=== PATIENT | male | born 1935 | race Caucasian/White ===

== ENCOUNTER 2016-12-12 06:52 | Day surgery (SDC) | payer MEDICARE, OTHER ==
[~2016-12-12 06:52] MED LIST: PHENYLEPHRINE 2.5% OPHTH 2 ML DROPS ONE
[2016-12-12] MEDS ORDERED: KETOROLAC 0.45% OPHTH DROPS OPTH ONE (07:20)
[2016-12-12] MEDS ORDERED: PROPARACAINE 0.5% OPHTH DROPS 15 ML OPTH ONE ×2 (07:20→08:07)
[2016-12-12] MEDS ORDERED: PHENYLEPHRINE 2.5% OPHTH 2 ML DROPS OPTH ONE (07:20)
[2016-12-12] MEDS ORDERED: CYCLOPENTOLATE 1% OPHTH DROPS 2 ML OPTH ONE (07:20)
[2016-12-12] MEDS ORDERED: LACTATED RINGERS 500 ML IV ONE (07:33)
[2016-12-12] MEDS ORDERED: MIDAZOLAM 2 MG/2 ML VIAL IVP ONE (08:00)
[2016-12-12] MEDS ORDERED: EPINEPHrine 1 MG/ML AMP IVP ONE (08:07)
[2016-12-12] MEDS ORDERED: CHONDR SULF/HYALURONATE SYRINGE IO ONE (08:07)
[2016-12-12] MEDS ORDERED: BSS/LIDOCAINE/EPINEPHRINE 1 ML SYRINGE IO ONE ×2 (08:07)
[2016-12-12] MEDS ORDERED: BRIMONIDINE 0.2% OPHTH DROPS 5 ML OPTH ONE (08:07)
[2016-12-12] MEDS ORDERED: TRIAMCIN/MOXIFLOX/VANCO 1 ML VIAL IO ONE ×2 (08:07)
== END 2016-12-12 06:53 | disposition home or self-care (01) ==
PROC: 08RJ3JZ Replacement of Right Lens with Synthetic Substitute, Percutaneous Approach (ICD-10-PCS; principal; 2016-12-12 08:05)
DX: E11.36 Type 2 diabetes mellitus with diabetic cataract (principal); H25.11 Age-related nuclear cataract, right eye; I10 Essential (primary) hypertension; J45.909 Unspecified asthma, uncomplicated
CPT/HCPCS: 66984; A9270; V2632

== ENCOUNTER 2017-01-13 12:58 | Outpatient (CLI) | payer MEDICARE, OTHER ==
[2017-01-13] MEDS ORDERED: ALBUTEROL NEB 2.5 MG/3 ML INH ONE (13:16)
== END 2017-01-13 12:59 | disposition home or self-care (01) ==
DX: J45.909 Unspecified asthma, uncomplicated (principal); R06.2 Wheezing
CPT/HCPCS: 94060; J7613

== ENCOUNTER 2017-01-15 | Outpatient (CLI) | payer MEDICARE, OTHER | END 2017-01-15 18:57 | disposition EMS.NT | DX: Z03.89 Encounter for observation for other suspected diseases and conditions ruled out (principal) ==

== ENCOUNTER 2017-04-03 13:14 | Outpatient (CLI) | payer MEDICARE, OTHER ==
--- NOTE | 2017-04-03 17:27 | XRAY Report ---
THREE VIEW LUMBAR SPINE: 04/03/2017 CLINICAL INDICATION: Point tenderness right lumbar spine, history of fusion. COMPARISON: MRI of 06/03/2015. FINDINGS: AP, lateral, and coned down views of the lumbar spine demonstrate posterior abdulkadir and pedicl e screw fusion spanning L4 through S1, with discectomy changes. L1 compression fracture appears stabl e. Extensive degenerative changes in the L2 and L3 vertebral bodies are present, at the site of previ ous osteomyelitis. No acute fracture is appreciated. Vascular calcifications are noted, and there is increase in dextroscoliosis from previous examinations. IMPRESSION: 1. STABLE L1 COMPRESSION FRACTURE. 2. EXTENSIVE DEGENERATIVE CHANGES AT L2-3, AT THE SITE OF PREVIOUS OSTEOMYELITIS. 3. STABLE APPEARANCE OF POSTERIOR ABDULKADIR AND PEDICLE SCREW FUSION SPANNING L4 THROUGH S1. JOB #: [id number] EXT JOB #:[id number]
== END 2017-04-03 13:15 | disposition home or self-care (01) ==
LOC: DI.S 13:14
PROVIDERS: ATTEND Physician Assistant
DX: M51.36 Other intervertebral disc degeneration, lumbar region (principal); Z96.698 Presence of other orthopedic joint implants
CPT/HCPCS: 72100

== ENCOUNTER 2017-06-20 15:58 | Emergency (ER) | payer MEDICARE, OTHER ==
--- NOTE | 2017-06-20 17:13 | ED Physician Documentation ---
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 The patient had a fall on Friday where he fell forward landing on concrete injuring the right mid tibia area. The patient was able to ambulate so he thought he was fine however from that point to the present is become slightly more swollen over time and now the front of his leg is red, tender in the entire lower extremity below the knee is swollen and pruritic because of the swelling. There is no pain with ambulation and however he has not been keeping it elevated or has been trying to stay off of it. He went to see his physician was concerned about possible venous thromboembolism and sent him in for evaluation. The patient is not on any anticoagulants. He has no chest pain or shortness of breath. There is no nausea vomiting fever chills, constipation, diarrhea or lower urinary symptoms. Review of systems: For pertinent positive and negatives in the review of systems please see the history of present illness, otherwise all other systems have been reviewed and are negative. Dragon disclaimer: Parts of this medical record were created using voice recognition technology. Because of the inherent limitations of this system, occasional same sounding word substitutions do occur and persist despite proofreading. Please read the document for context. Review of Systems Ten Systems: 10 systems reviewed and negative Constitutional: denies: Fever, Chills Eyes: denies: Loss of vision, Photophobia Ears: denies: Loss of hearing, Ear pain GI: denies: Abdominal Pain, Vomiting : denies: Dysuria, Frequency, Hesitancy Musculoskeletal: denies: Neck pain, Back pain, Extremity pain Neurologic: denies: Numbness Psychiatric: denies: Depressed, Suicidal, Homicidal Endocrine: denies: Polyphagia PD PAST MEDICAL HISTORY - Past Medical History Cardiovascular: Hypertension Respiratory: Asthma, Other Endocrine/Autoimmune: Type 2 diabetes, Other GI: None : None HEENT: Glaucoma, Other Psych: Anxiety Musculoskeletal: Osteoarthritis, Chronic back pain Derm: Other - Past Surgical History General: Colonoscopy Ortho: Spine surgery Derm: Skin cancer surgery - Present Medications Home Medications: Ambulatory Orders Medication Instructions Recorded Confirmed Albuterol Sulf [Ventolin Hfa 2 puffs INH Q4HR PRN 12/11/16 06/20/17 Inhaler] Gabapentin [Neurontin] 900 mg PO BID 12/11/16 06/20/17 Lisinopril 20 mg PO DAILY 12/11/16 06/20/17 amLODIPine [Norvasc] 10 mg PO DAILY 12/11/16 06/20/17 buPROPion [Wellbutrin Xl] 300 mg PO DAILY 12/11/16 06/20/17 oxyCODONE [Roxicodone] 10 mg PO QID 12/11/16 06/20/17 Latanoprost 0.005% Ophth Drops 1 drops OPTH BID 12/12/16 06/20/17 [Xalatan Ophth Drops] Melatonin 1 mg PO QPM 12/12/16 06/20/17 Budesonide/Formoterol Fumarate 1 puffs PO DAILY 06/20/17 06/20/17 [Symbicort 80-4.5 Mcg Inhaler] metFORMIN [Glucophage] 500 mg PO DAILY 06/20/17 06/20/17 - Allergies Allergies/Adverse Reactions: Allergies Allergy/AdvReac Type Severity Reaction Status Date / Time No Known Drug Allergies Allergy Verified 12/11/16 13:21 - Social History Does the pt smoke?: No Smoking Status: Never smoker - Immunizations Immunizations are current?: Yes PD ED PE NORMAL - General General: Alert and oriented X 3, No acute distress, Well developed/nourished - HEENT HEENT: Atraumatic - Neck Neck: No bony TTP - Cardiac Cardiac: RRR, No murmur - Respiratory Respiratory: No respiratory distress, Clear bilaterally - Abdomen Abdomen: Normal bowel sounds, Soft, Non tender, Non distended - Derm Derm: Normal color, Warm and dry - Extremities Extremities: Other (The right leg is diffusely edematous and swollen from the knee downward. There is area of bruising just below the right knee and also over the mid tibia area anteriorly. There is mild surrounding erythema but no warmth. The entire right lower extremity is swollen however it appears mostly edemas from the front of the leg where the trauma occurred. There is good capillary refill. His foot is warm and movement does not elicit any pain in the leg. There are good easily palpable pulses and there is no evidence of any venous circulatory problems. Range of motion of the knee is normal. Range of motion of the ankle is normal as well. There is no hindfoot midfoot, or forefoot tenderness on exam.) Results - Vitals Vitals: Vital Signs - 24 hr 06/20/17 06/20/17 16:06 18:23 Temperature 36.8 C Heart Rate 68 68 Respiratory 16 17 Rate Blood Pressure 122/69 133/54 H O2 Saturation 95 97 Oxygen O2 Source Room air - Labs Labs: Laboratory Tests 06/20/17 06/20/17 06/20/17 16:43 17:17 17:17 WBC 7.9 RBC 4.35 L Hgb 13.7 L Hct 41.4 L MCV 95.1 H MCH 31.4 H MCHC 33.0 RDW 12.2 Plt Count 195 MPV 8.2 Neut # 5.2 Lymph # 1.8 Blount # 0.7 Eos # 0.1 Baso # 0.0 Absolute Nucleated RBC 0.00 Nucleated RBCs 0.0 PT 10.8 INR 1.0 Sodium Potassium Chloride Carbon Dioxide Anion Gap BUN Creatinine Estimated GFR (MDRD) Glucose POC Whole Bld Glucose 105 H Calcium 06/20/17 17:17 WBC RBC Hgb Hct MCV MCH MCHC RDW Plt Count MPV Neut # Lymph # Blount # Eos # Baso # Absolute Nucleated RBC Nucleated RBCs PT INR Sodium 135 Potassium 4.6 Chloride 98 L Carbon Dioxide 29 Anion Gap 8.0 BUN 26 H Creatinine 0.9 Estimated GFR (MDRD) 81 L Glucose 105 H POC Whole Bld Glucose Calcium 9.2 PD MEDICAL DECISION MAKING - ED course Complexity details: reviewed old records, reviewed results, re-evaluated patient ED course: Patient is a 82-year-old male who presents with right leg pain and swelling after an injury a week ago. On examination it looks like the swelling is probably due to contusion and hematoma however I do agree with his physician's assessment that he does require ultrasound to rule out a DVT. Ultrasound was done and is negative for deep venous thrombosis. Plain films of the patient's fibula and tibia were done and are unremarkable as well. At this point I am recommending warmth, elevation, limited exercise and follow-up with his physician. Disposition: To home Clinical impression: 1. Right lower extremity contusion and hematoma Departure - Departure Disposition: Home, Self Care Clinical Impression: Hematoma of lower extremity, Contusion Condition: Good Instructions: Contusion Bone About, ED Hematoma Follow-Up: Meghana Richards PA [Primary Care Provider] -
[2017-06-20 17:23] LABS: BASOPHILS % (AUTO) 0.5 %; EOSINOPHILS # (AUTO) 0.1 10^3/uL (0.0-0.7); EOSINOPHILS % (AUTO) 1.4 %; HCT - HEMATOCRIT 41.4 % (42.0-52.0); HGB - HEMOGLOBIN 13.7 g/dL (14.0-18.0); LYMPHOCYTES # (AUTO) 1.8 10^3/uL (1.5-3.5); LYMPHOCYTES % (AUTO) 23.4 %; MEAN CORPUSCULAR HEMOGLOBIN 31.4 pg (27.0-31.0); MEAN CORPUSCULAR VOLUME 95.1 fL (80.0-94.0); MEAN PLATELET VOLUME 8.2 fL (7.4-11.4); MONOCYTES # (AUTO) 0.7 10^3/uL (0.0-1.0); MONOCYTES % (AUTO) 9.1 %; NEUTROPHILS # (AUTO) 5.2 10^3/uL (1.5-6.6); NEUTROPHILS % (AUTO) 65.6 %; RED BLOOD COUNT 4.35 10^6/uL (4.70-6.10); RED CELL DISTRIBUTION WIDTH 12.2 % (12.0-15.0); UNCORRECTED WHITE BLOOD COUNT 7.9 x10^3/uL; WHITE BLOOD COUNT 7.9 x10^3/uL (4.8-10.8)
[2017-06-20 17:31] LABS: CALCIUM 9.2 mg/dL (8.5-10.3); CREATININE 0.9 mg/dL (0.6-1.2); POTASSIUM 4.6 mmol/L (3.5-5.0); PT - PROTHROMBIN TIME 10.8 secs (9.9-12.6)
--- NOTE | 2017-06-20 17:50 | XRAY Preliminary Report ---
Exam: XR Tib/Fib RT IMPRESSION: Soft tissue swelling. No acute fracture identified. [facility] SITE ID: [id number]
--- NOTE | 2017-06-20 17:53 | XRAY Report ---
EXAM: RIGHT TIBIA/FIBULA RADIOGRAPHY EXAM DATE: 06/20/2017 05:33 PM. CLINICAL HISTORY: Mid tibial injury subacute. COMPARISON: None. TECHNIQUE: 2 views. FINDINGS: Bones: No acute fracture or focal osseous destruction identified. Joints: joints appear maintained with no dislocation. Soft Tissues: Atherosclerotic vascular calcification. Soft tissue swelling. IMPRESSION: Soft tissue swelling. No acute fracture identified. [facility] Referring Provider Line: [phone] SITE ID: [id number]
[2017-06-20 18:24] VITALS: BP 133/54
--- NOTE | 2017-06-20 18:36 | Ultrasound Preliminary Report ---
Exam: US Duplex Venous Limited IMPRESSION: No evidence for deep venous thrombosis. [facility] SITE ID: [id number]
--- NOTE | 2017-06-20 18:38 | Ultrasound Report ---
EXAM: RIGHT LOWER EXTREMITY VENOUS ULTRASOUND EXAM DATE: 06/20/2017 06:17 PM. CLINICAL HISTORY: Right leg swelling. COMPARISON: None. TECHNIQUE: Real-time sonographic vascular imaging was performed by the proposal lead writer through the lower extremity utilizing both color-flow and Doppler spectral analysis. Multiple manufacturers representative static anthony ges were saved for review. FINDINGS: Common Femoral Vein (CFV): Normal. CFV-GSV Junction: Normal. Profunda Femoral Vein (PFV): Normal. Femoral Vein (FV) Prox: Normal. Femoral Vein (FV) Mid: Normal. Femoral Vein (FV) Dist: Normal. Popliteal Vein: Normal. Posterior Tibial Veins: Normal. Peroneal Veins: Normal. Contralateral Side CFV: Normal. Other: None. IMPRESSION: No evidence for deep venous thrombosis. [facility] Referring Provider Line: [phone] SITE ID: [id number]
== END 2017-06-20 18:51 | disposition home or self-care (01) ==
LOC: ED 15:58
DX: S80.11XA Contusion of right lower leg, initial encounter (principal); W18.30XA Fall on same level, unspecified, initial encounter; I10 Essential (primary) hypertension; J45.909 Unspecified asthma, uncomplicated; E11.9 Type 2 diabetes mellitus without complications; Z79.84 Long term (current) use of oral hypoglycemic drugs
CPT/HCPCS: 36415; 80048; 85025; 85610; 93971; 99283

== ENCOUNTER 2017-06-26 11:14 | Outpatient (CLI) | payer MEDICARE, OTHER | END 2017-06-26 11:15 | disposition home or self-care (01) | LOC: DI 11:14 | PROVIDERS: ATTEND Physician Assistant | DX: I10 Essential (primary) hypertension (principal); R60.9 Edema, unspecified; I51.7 Cardiomegaly | CPT/HCPCS: 93306 ==

== ENCOUNTER 2017-08-25 13:02 | Outpatient (CLI) | payer MEDICARE, OTHER | END 2017-08-25 13:03 | disposition home or self-care (01) | LOC: SC 13:02 | PROVIDERS: ATTEND Internal Medicine Pulmonary Disease | DX: G47.10 Hypersomnia, unspecified (principal); R06.83 Snoring; I10 Essential (primary) hypertension | CPT/HCPCS: 99203; G0463; 99212 ==

== ENCOUNTER 2018-02-25 09:46 | Outpatient (CLI) | payer MEDICARE, OTHER ==
--- NOTE | 2018-02-25 12:52 | XRAY Report ---
TWO VIEW CHEST: 02/25/2018 CLINICAL INDICATION: Cough, shortness of breath. COMPARISON: 10/23/2016. FINDINGS: Frontal and lateral views of the chest demonstrate a normal cardiac silhouette. Hiatal hernia is stable. No new consolidation, effusion, or pneumothorax is present. IMPRESSION: STABLE HIATAL HERNIA. NO EVIDENCE OF ACUTE CARDIOPULMONARY DISEASE. TD: 02/25/2018 12:51
== END 2018-02-25 09:47 | disposition home or self-care (01) ==
LOC: DI 09:46
PROVIDERS: ATTEND Nurse Practitioner Family
DX: R05 Cough (principal); R06.2 Wheezing; K44.9 Diaphragmatic hernia without obstruction or gangrene
CPT/HCPCS: 71046

== ENCOUNTER 2018-06-12 08:57 | Outpatient (CLI) | payer MEDICARE, OTHER ==
--- NOTE | 2018-06-12 10:13 | XRAY Report ---
Procedure Date: 06/12/2018 Accession Number: [id number] / [id number] Procedure: XR - Thoracic Spine 2 View CPT Code: FULL RESULT: EXAM: Thoracic Spine 2 View, Lumbar Spine 2 View DATE: 06/12/2018 9:26 AM CLINICAL HISTORY: HISTORY OF FRACTURE, FAILLING INJURY COMPARISON: None. TECHNIQUE: 2 views of the thoracic spine and 2 views of the lumbar spine were obtained. FINDINGS: Visualization of vertebral bodies on the lateral radiograph is limited by positioning, technique and qualitative osteopenia. Alignment: Normal. No spondylolisthesis or scoliosis. Bones: No fractures or bone lesions. Disks: Normal. Disk heights are maintained. Soft Tissues: A known hiatal hernia is partially visualized. The visualized lungs and cardiomediastinal silhouette are otherwise unremarkable. LUMBAR SPINE: Lumbar spinal fusion hardware spanning L4-S1 is again seen in similar configuration. Dextro listhesis of L3 on L4 with extensive osseous degeneration also appears similar to before. The L1 anterior compression fracture is stable. Vascular calcifications are again noted to be extensive. IMPRESSION: Limited visualization of the thoracic spine which is qualitatively osteopenic. Redemonstration of lower lumbar fusion hardware and extensive degenerative changes of the lumbar spine with reported history of prior osteomyelitis, all similar in appearance. Stable L1 compression fracture. [facility]
== END 2018-06-12 08:58 | disposition home or self-care (01) ==
LOC: DI 08:57
PROVIDERS: ATTEND Internal Medicine
DX: M47.896 Other spondylosis, lumbar region (principal); M85.88 Other specified disorders of bone density and structure, other site; M43.16 Spondylolisthesis, lumbar region; Z98.1 Arthrodesis status; S32.019D Unspecified fracture of first lumbar vertebra, subsequent encounter for fracture with routine healing
CPT/HCPCS: 72070; 72100

== ENCOUNTER 2018-07-03 09:04 | Outpatient (CLI) | payer MEDICARE, OTHER ==
[2018-07-03] MEDS ORDERED: GADOBUTROL 10 MMOL/10 ML VIAL ONE (09:26)
[2018-07-03] MEDS ORDERED: GADOBUTROL 10 MMOL/10 ML VIAL IVP ONE (09:59)
--- NOTE | 2018-07-03 17:38 | MRI Report ---
Procedure Date: 07/03/2018 Accession Number: [id number] / [id number] Procedure: MRI - Lumbar Spine W/WO CPT Code: FULL RESULT: MRI LUMBAR SPINE WITHOUT AND WITH CONTRAST INDICATION: 83-year-old male with a history of spinal stenosis. Has recurrent symptoms after recent fall. Please assess. TECHNIQUE: 1. Sagittal STIR, T1 and T2. 2. Axial T1 and T2. 3. 10 cc IV Gadavist. T1 axial and fat saturated T1 sagittal. COMPARISON: 06/03/2015. FINDINGS: There appear to be 5 [id number], lumbar-type vertebrae. Again demonstrated is a minor, dextroconvex scoliosis with apex at the L1-L2 disk level and compensatory, mild, levoconvex scoliosis with apex at the L4-L5 disk level. In the sagittal plane again demonstrated is a mild acute kyphosis with apex at T12-L1. In addition, again demonstrated is minor retrolisthesis of L2 on L3 and L3 on L4 and minor anterolisthesis of L4 on L5, stable. Again demonstrated is quite marked anterior wedging of the L1 vertebral body, stable. There has been interval development of prominent concavity of the superior endplate of L3 with associated height loss, most pronounced centrally where the height loss appears to represent about 50%. Mild to moderate loss of height is seen anteriorly and posteriorly. No significant retropulsion is demonstrated. Normal fatty marrow signal is seen throughout the L3 vertebral body, confirming that the fracture deformity is long-standing and does not relate to recent fracture. The vertebral body heights are otherwise preserved. Previously demonstrated findings of diskitis/osteomyelitis at L2-L3 have completely resolved. Again demonstrated are changes of previous diskectomy at L4-L5. An interbody fusion device is again seen within the L4-L5 disk space. No obvious trabecular bone is seen traversing the L4-L5 disk space to confirm interbody fusion. This suggests nonunion. Changes of previous diskectomy and interbody fusion surgery are also again seen at L5-S1. Once again, no trabecular bone is identified traversing the disk space suggesting possible nonunion. Also again demonstrated are changes of previous instrumented, posterolateral fusion from L4 to S1 with pedicle screws and interconnecting rods in place. There is some magnetic susceptibility artifact from the pedicle screws; however, this is not resulting in significant image degradation. Degenerative changes are demonstrated in the disks at all levels. There is a multilevel degenerative disk space narrowing. Moderate disk space narrowing is now seen at L2-L3. There is relatively severe disk space narrowing at L3-L4, laterally on the left, unchanged. The L1-L2 and L5-S1 disk space heights appear relatively preserved. The marrow signal intensity is unremarkable. The conus terminates in an appropriate fashion at the upper L1 level. There is no abnormal thickening or lipomatous change of the filum. Axial images: T12-L1: No disk herniation or spinal stenosis. No foraminal stenosis. L1-L2: Again demonstrated is a broad-based, right intraforaminal/extraforaminal protrusion or extrusion with associated annular fissure, unchanged. No significant spinal stenosis. Mild right and mild to moderate left foraminal stenoses, unchanged. L2-L3: Retrolisthesis. A small focal extrusion is now demonstrated, paracentrally on the left. It demonstrates minor, caudal migration in the ventral epidural space along the dorsal margin of the upper L3 vertebral body on the left. The extrusion projects posteriorly into the spinal canal for up to about 3.5 mm. There is a broad-based, left intraforaminal/extraforaminal extrusion with associated, minor intraforaminal osteophyte unchanged. In addition, a broad-based right intraforaminal/extraforaminal extrusion with associated, intraforaminal osteophyte is again demonstrated,essentially unchanged. There is early degenerative facet arthrosis. No significant bony hypertrophy. Mild to moderate redundancy of the ligamenta flava. Again demonstrated is prominence of the intradural fat pad. There is circumferential thecal sac compression with severe generalized (central and subarticular zone) spinal stenosis. The left subarticular zone is most severely affected and appears to be completely effaced. The mid sagittal canal diameter is reduced to about 5.6 mm, similar to previous study. The degree of foraminal narrowing is slightly increased. There appears be at least moderate foraminal stenosis bilaterally. L3: The previously demonstrated, left-sided epidural abscess is no longer seen and appears to have completely resolved. However, there is significant spinal stenosis at this level, primarily due to abundant epidural fat that surrounds and compresses the dural sac. Little if any CSF is seen in the dural sac at this level. L3-L4: Retrolisthesis. Circumferential disk bulge with associated posterior osteophyte. Broad-based intraforaminal/extraforaminal extrusions with associated osteophyte bilaterally, similar to previous examination. Degenerative facet arthrosis with associated bony hypertrophy, stable. There is mild to moderate redundancy of the ligamenta flava. Prominent intralaminar fat pad. Severe generalized spinal stenosis. The degree of spinal stenosis appears minimally worse when compared to the prior study. Severe right and high-grade left foraminal stenoses. On the left, prominent bony spur rising from the superior articular process of L4 projects into the foramen and contacts the exiting left L3 nerve root. The L3 nerve root appears be flattened in the lateral aspect of the foramen. L4-L5: Again demonstrated are changes related to previous bilateral laminectomy or laminotomy. No focal disk herniation is demonstrated. No spinal stenosis. There is moderate to severe right foraminal stenosis unchanged. Perineural fat surrounding the exiting right L5 nerve root continues to be effaced. Moderate left foraminal stenosis, stable. L5-S1: No disk herniation. No central zone spinal stenosis or significant subarticular zone narrowing. There is mild left and mild to moderate right foraminal narrowing, stable. Fairly advanced fatty atrophy is again noted in the posterior paraspinal musculature. There is edema in the midline, subcutaneous fat that is nonspecific. It extends from about upper L3 to upper S2. The lower lumbar spine is obscured due to beam hardening artifact. However, no abnormal enhancement is identified in the upper lumbar spine on postcontrast fat saturated T1 sagittal sequence. No findings concerning for active infection at this time. IMPRESSION: 1. The findings of diskitis/osteomyelitis at L2-L3 seen on previous study 06/03/2015 are no longer demonstrated and appear to have resolved. In addition, the epidural abscess in the left epidural space at L3 appears to have completely resolved. 2. Stable compression deformity of L1. There has been interval development of concavity of the superior endplate of L3 with associated loss of height, most pronounced centrally. No marrow edema is seen in the L3 vertebral body confirming that this represents a long-standing abnormality rather than relating to acute or subacute fracture. 3. Postsurgical changes are again demonstrated at L4-L5 and L5-S1, unchanged. Again noted are findings of previous diskectomy and interbody fusion surgery at L4-L5 and L5-S1. No trabecular bone has developed across either disk space to suggest solid interbody fusion. This suggests probable nonunion, a potential cause for pain. 4. Fairly advanced degenerative disk and facet changes are seen in the lumbar spine as described, showing some interval progression when compared to previous study 06/03/2015. There are associated, central, subarticular and foraminal zone stenoses. The most significant stenoses are as follows: A. Severe generalized spinal stenosis at L2-L3, similar to previous examination. There is a new, left-sided extrusion at this level and degree of stenosis in the left subarticular zone has progressed. B. There is severe generalized spinal stenosis at L3-L4 that has shown mild interval progression since the previous examination. Again noted are severe foraminal stenoses at L3-L4 bilaterally, worse on the left than the right. There is almost certain compromise of exiting left L3 nerve root. There could be compromise of exiting right L3 nerve root as well. Addendum: Noted is a new roughly 8 mm AP by 6 mm transverse, ovoid, T1 hypointense and T2 hyperintense lesion in the left pedicle of L3 (see image 7 of series #301 and image 21 of series 601). The etiology is uncertain. This may represent some type of degenerative bone cyst. However, concerning is circumferential enhancement on the postcontrast sequence (see image 6 of series 801). This makes it difficult to exclude infection. A thin slice, high-resolution CT through this area (i.e., from upper L2 to lower L4) may be helpful in further evaluating this new left L3 pedicle lesion.
== END 2018-07-03 09:05 | disposition home or self-care (01) ==
LOC: DI 09:04
PROVIDERS: ATTEND Internal Medicine
DX: M51.36 Other intervertebral disc degeneration, lumbar region (principal); M47.896 Other spondylosis, lumbar region; M48.061 Spinal stenosis, lumbar region without neurogenic claudication; M51.26 Other intervertebral disc displacement, lumbar region; M43.16 Spondylolisthesis, lumbar region; M43.8X6 Other specified deforming dorsopathies, lumbar region; M89.9 Disorder of bone, unspecified
CPT/HCPCS: 72158; A9585

== ENCOUNTER 2021-03-22 13:03 | Outpatient (CLI) | payer MEDICARE, OTHER ==
[2021-03-22 13:33] LABS: CALCIUM 9.2 mg/dL (8.5-10.3); CREATININE 0.7 mg/dL (0.6-1.2)
[2021-03-22] MEDS ORDERED: GADOBUTROL 10 MMOL/10 ML VIAL ONE (13:44)
[2021-03-22] MEDS ORDERED: GADOBUTROL 10 MMOL/10 ML VIAL IVP ONE (14:58)
--- NOTE | 2021-03-22 15:38 | MRI Report ---
PROCEDURE: Brain with and without IV contrast INDICATIONS: Canal CONTRAST: IV CONTRAST: Gadavist ml: 100 TECHNIQUE: Noncontrast axial T1 spin echo, axial T2 fast spin echo, sagittal and axial FLAIR, coronal T2 fast sp in echo, axial gradient echo, axial diffusion and ADC through the brain. After the administration of contrast, axial and coronal T1 spin echo with fat saturation through the brain. COMPARISON: None. FINDINGS: Image quality: Excellent. CSF spaces: Basal cisterns are patent. No extra-axial fluid collections. Ventricles are normal in size and shape. Brain: No midline shift. No intracranial bleeds or masses. No abnormal intracranial enhancement. There is cerebral volume loss for age. There is periventricular white matter chronic small vessel is chemic change. The brainstem appears normal. Diffusion-weighted images demonstrate no acute ischemi c insults. No chronic ischemic insults. Normal intravascular flow voids are present. Skull and face: Calvarial marrow is normal in signal. Orbits appear normal other than bilateral int raocular lens replacements. Sinuses: Scattered paranasal sinus mucosal thickening with moderate sized mucosal retention cyst in t he right maxillary sinus. Mastoid air cells appear clear. IMPRESSION: No acute intracranial finding or abnormal intracranial enhancement. Reviewed by: Miguel Angel Colon MD on 03/22/2021 3:36 PM PDT Approved by: Miguel Angel Colon MD on 03/22/2021 3:36 PM PDT Station ID: [id number]
== END 2021-03-22 13:04 | disposition home or self-care (01) ==
LOC: LAB 13:03
PROVIDERS: ATTEND Otolaryngology
DX: E11.69 Type 2 diabetes mellitus with other specified complication (principal); R26.89 Other abnormalities of gait and mobility
CPT/HCPCS: 36415; 70553; 80048; A9585

== ENCOUNTER 2021-06-14 06:11 | Outpatient (CLI) | payer MEDICARE, OTHER | END 2021-06-14 06:12 | disposition critical access hospital (66) | LOC: EMS 06:11 | DX: S01.91XA Laceration without foreign body of unspecified part of head, initial encounter (principal); W18.39XA Other fall on same level, initial encounter; W22.09XA Striking against other stationary object, initial encounter; Y93.G1 Activity, food preparation and clean up; Y92.000 Kitchen of unspecified non-institutional (private) residence as the place of occurrence of the external cause | CPT/HCPCS: A0425; A0429 ==

== ENCOUNTER 2021-06-14 06:38 | Emergency (ER) | payer MEDICARE, OTHER ==
[2021-06-14] MEDS ORDERED: BUFFERED LIDOCAINE 10 ML SYRINGE IU ONE (07:48)
--- NOTE | 2021-06-14 08:10 | CT Report ---
PROCEDURE: HEAD WO INDICATIONS: head injury TECHNIQUE: Noncontrast 4.5 mm thick angled axial sections acquired from the foramen magnum to the vertex. For r adiation dose reduction, the following was used: automated exposure control, adjustment of mA and/or kV according to patient size. COMPARISON: None FINDINGS: Image quality: Excellent. CSF spaces: Basal cisterns are patent. No extra-axial fluid collections. The ventricles are symmet francesca in size and shape. Brain: No intracranial bleeds or masses. There is cerebral volume loss for age, with resultant vent ricular and sulcal prominence. There are periventricular and deep white matter chronic small vessel ischemic changes. There is intracranial internal carotid artery and vertebral artery atherosclerosis . Skull and face: Calvarium and visualized facial bones appear intact, without suspicious lesions. The scalp midline hematoma/laceration. Sinuses: Visualized sinuses and mastoids are clear. IMPRESSION: No acute intracranial disease process. Reviewed by: Luda Borja MD, PhD on 06/14/2021 8:09 AM PDT Approved by: Luda Borja MD, PhD on 06/14/2021 8:09 AM PDT Station ID: [id number]
--- NOTE | 2021-06-14 08:44 | ED Physician Documentation ---
PD HPI HEAD INJURY - Stated complaint Stated Complaint: GLF/HEAD LAC - Chief complaint Chief Complaint: Trauma Hd/Nk - History obtained from History obtained from: Patient, Family - Additional information Additional information: Patient comes emergency department chief complaint of head injury after ground- level fall. Patient states he has been unsteady on his feet for some months and that he will randomly fall at times. Patient does not remember specifically tripping over anything but states that he suddenly was stumbling backwards and hit his head on the edge of a cabinet. Patient did not lose consciousness. He denies any rib, spine, hip, or shoulder pain. No extremity pain. He sustained a laceration to his posterior scalp. No other complaints at this time. Review of Systems Ten Systems: 10 systems reviewed and negative Constitutional: reports: Reviewed and negative Eyes: reports: Reviewed and negative Ears: reports: Reviewed and negative Nose: reports: Reviewed and negative Throat: reports: Reviewed and negative Cardiac: reports: Reviewed and negative Respiratory: reports: Reviewed and negative GI: reports: Reviewed and negative : reports: Reviewed and negative Skin: reports: Reviewed and negative Musculoskeletal: reports: Reviewed and negative Neurologic: reports: Head injury. denies: LOC Psychiatric: reports: Reviewed and negative Endocrine: reports: Reviewed and negative Immunocompromised: reports: Reviewed and negative PD PAST MEDICAL HISTORY - Past Medical History Past Medical History: Yes Cardiovascular: Hypertension Respiratory: Asthma, Other Endocrine/Autoimmune: Type 2 diabetes, Other GI: None : None HEENT: Glaucoma, Other Psych: Anxiety Musculoskeletal: Osteoarthritis, Chronic back pain Derm: Other - Past Surgical History General: Colonoscopy Ortho: Spine surgery Derm: Skin cancer surgery - Present Medications Home Medications: Ambulatory Orders Medication Instructions Recorded Confirmed Albuterol Sulf [Ventolin Hfa 2 puffs INH Q4HR PRN 12/11/16 06/14/21 Inhaler] Gabapentin [Neurontin] 900 mg PO BID 12/11/16 06/14/21 Lisinopril 20 mg PO DAILY 12/11/16 06/14/21 amLODIPine [Norvasc] 10 mg PO DAILY 12/11/16 06/14/21 buPROPion [Wellbutrin Xl] 300 mg PO DAILY 12/11/16 06/14/21 oxyCODONE [Roxicodone] 10 mg PO QID 12/11/16 06/14/21 Latanoprost 0.005% Ophth Drops 1 drops OPTH BID 12/12/16 06/14/21 [Xalatan Ophth Drops] Melatonin 1 mg PO QPM 12/12/16 06/14/21 Budesonide/Formoterol Fumarate 1 puffs PO DAILY 06/20/17 06/14/21 [Symbicort 80-4.5 Mcg Inhaler] metFORMIN [Glucophage] 500 mg PO DAILY 06/20/17 06/14/21 - Allergies Allergies/Adverse Reactions: Allergies Allergy/AdvReac Type Severity Reaction Status Date / Time No Known Drug Allergies Allergy Verified 06/14/21 06:43 - Social History Does the pt smoke?: No Smoking Status: Never smoker - Immunizations Immunizations are current?: Yes PD ED PE NORMAL - Vitals Vital signs reviewed: Yes - General General: Alert and oriented X 3, No acute distress, Well developed/nourished - HEENT HEENT: PERRL, EOMI, Moist mucous membranes, Other (4.5 cm vertical laceration to midline scalp posteriorly and superiorly. No active bleeding at this point time, but fresh clot noted in wound.) - Neck Neck: Supple, no meningeal sign, No bony TTP - Cardiac Cardiac: RRR, No murmur, Strong equal pulses - Respiratory Respiratory: No respiratory distress, Clear bilaterally - Abdomen Abdomen: Soft, Non tender, Non distended - Back Back: No spinal TTP, Other (Rib tenderness or step-off. 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, No motor deficit, No sensory deficit, Normal speech - Psych Psych: Normal mood, Normal affect Results - Vitals Vitals: Vital Signs - 24 hr 06/14/21 06/14/21 06/14/21 06:43 06:46 09:22 Temperature 36.8 C 36.8 C 36.4 C L Heart Rate 65 65 66 Respiratory 19 18 16 Rate Blood Pressure 180/60 H 180/60 H 164/76 H O2 Saturation 97 97 97 Oxygen O2 Source Room air - Rads (name of study) ct head Radiology: Final report received, EMP read indepedently, See rad report (neg) Procedures - Laceration (location) scalp Length in cm: 4.5 Wound type: Linear, Into subcut fat, Clean Neurovascular status: Sensory intact, Vascular intact Tendon involvement: No: Tendon Injury Anesthesia: Lidocaine 1% Wound preparation: Hibiclens, Irrigated copiously NS, Wound explored, To the base. No: FB identified Skin layer closure: [place] (11) Other: Patient tolerated well, No complications, Neurovascular intact, Dressing applied, Tetanus UTD PD MEDICAL DECISION MAKING - ED course Complexity details: reviewed results, re-evaluated patient, considered differential, d/w patient, d/w family ED course: Patient was sent for CT scan of the brain which was unremarkable. Scalp laceration was repaired with 11 alber as above. We have discussed wound care at home and the need for reevaluation of the wound and 10 days with plan to remove alber at that time. We have discussed signs of infection which should prompt return. Departure - Departure Disposition: 01 Home, Self Care Clinical Impression: Closed head injury Qualifiers: Encounter type: initial encounter Qualified Code(s): S09.90XA - Unspecified injury of head, initial encounter Scalp laceration Qualifiers: Encounter type: initial encounter Qualified Code(s): S01.01XA - Laceration without foreign body of scalp, initial encounter Condition: Stable Instructions: ED Head Injury Closed, ED Laceration Scalp Stitch Or Stap Comments: The CT scan of your brain looks good. There is no bleeding or other injury internally. Your laceration has been 6 sterilely stapled with 11 alber today. You may allow water and soap to run over the wound but please do not rub, scrub, or immerse the wound until the alber are removed. Your wound should be rechecked in 10 days and should be ready for staple removal at that time. If your doctor has the appropriate device in his or her office, you may follow-up there for your wound recheck and staple removal. Otherwise, you may go to the walk-in clinic or come to the emergency department for this. If your wound develops redness or progressive swelling spreading away from the wound, or if the wound begins to drain what appears to be pus, you should have it rechecked immediately. You should keep the wound covered with a gauze bandage until the wound sets up with a dry scab. You may also apply an antibacterial ointment for the first few days if you wish, such as Neosporin. Once the wound is dry, it ma y be left open to air. Discharge Date/Time: 06/14/21 09:22
[2021-06-14 09:23] VITALS: BP 164/76
== END 2021-06-14 09:22 | disposition home or self-care (01) ==
LOC: EDUNIT# → ED 06:38
DX: S01.01XA Laceration without foreign body of scalp, initial encounter (principal); W01.190A Fall on same level from slipping, tripping and stumbling with subsequent striking against furniture, initial encounter; I10 Essential (primary) hypertension; E11.9 Type 2 diabetes mellitus without complications; Z79.84 Long term (current) use of oral hypoglycemic drugs; R26.81 Unsteadiness on feet
CPT/HCPCS: 12002; 99282; 99284

== ENCOUNTER 2021-08-01 07:40 | Outpatient (CLI) | payer MEDICARE, OTHER ==
[2021-08-01 15:16] LABS: CALCIUM 8.9 mg/dL (8.5-10.3); CREATININE 0.8 mg/dL (0.6-1.2)
== END 2021-08-01 07:41 | disposition home or self-care (01) ==
LOC: LAB.S 07:40
PROVIDERS: ATTEND Nurse Practitioner Family
DX: I50.812 Chronic right heart failure (principal); I50.32 Chronic diastolic (congestive) heart failure; I87.8 Other specified disorders of veins
CPT/HCPCS: 36415; 80048

== ENCOUNTER 2022-05-13 13:21 | Emergency (ER) | payer MEDICARE, OTHER ==
[2022-05-13] MEDS ORDERED: HYDROmorphone 1 MG/ML CARPUJECT IVP STA (14:10)
--- NOTE | 2022-05-13 14:12 | ED Physician Documentation ---
PD HPI BACK PAIN - Stated complaint Stated Complaint: FALL,BACK PAIN - Chief complaint Chief Complaint: Back Pain - History obtained from History obtained from: Patient, Family - Additional information Additional information: 87-year-old gentleman with chronic back pain, around 2004 he had a surgery and then a #1 and about 7 years ago which was related to a spinal infection. He is on chronic oxycodone for same but his notes that his doctor is tapering him off. They are planning on switching physicians. 2 days ago he fell straight on his back and now has increased upper/mid lumbar back pain without weakness, numbness, tingling, saddle anesthesia, incontinence, or fevers. Review of Systems Constitutional: denies: Fever, Chills Cardiac: denies: Chest pain / pressure, Palpitations Respiratory: denies: Dyspnea, Cough GI: denies: Abdominal Pain, Diarrhea PD PAST MEDICAL HISTORY - Past Medical History Cardiovascular: Hypertension Respiratory: Asthma, Other Endocrine/Autoimmune: Type 2 diabetes, Other GI: None : None HEENT: Glaucoma, Other Psych: Anxiety Musculoskeletal: Osteoarthritis, Chronic back pain Derm: Other - Past Surgical History General: Colonoscopy Ortho: Spine surgery Derm: Skin cancer surgery - Present Medications Home Medications: Ambulatory Orders Medication Instructions Recorded Confirmed Albuterol Sulf [Ventolin Hfa 2 puffs INH Q4HR PRN 12/11/16 05/13/22 Inhaler] Gabapentin [Neurontin] 900 mg PO BID 12/11/16 05/13/22 Lisinopril 20 mg PO DAILY 12/11/16 05/13/22 amLODIPine [Norvasc] 10 mg PO DAILY 12/11/16 05/13/22 buPROPion [Wellbutrin Xl] 300 mg PO DAILY 12/11/16 05/13/22 oxyCODONE [Roxicodone] 10 mg PO QID 12/11/16 05/13/22 Latanoprost 0.005% Ophth Drops 1 drops OPTH BID 12/12/16 05/13/22 [Xalatan Ophth Drops] Melatonin 1 mg PO QPM 12/12/16 05/13/22 Budesonide/Formoterol Fumarate 1 puffs PO DAILY 06/20/17 05/13/22 [Symbicort 80-4.5 Mcg Inhaler] metFORMIN [Glucophage] 500 mg PO DAILY 06/20/17 05/13/22 Calcitonin [Fortical] 1 sprays ENID DAILY #30 spr 05/13/22 oxyCODONE [Roxicodone] 2 tab PO Q4-6H PRN #40 tablet 05/13/22 - Allergies Allergies/Adverse Reactions: Allergies Allergy/AdvReac Type Severity Reaction Status Date / Time No Known Drug Allergies Allergy Verified 05/13/22 13:44 - Social History Does the pt smoke?: No Smoking Status: Never smoker - Immunizations Immunizations are current?: Yes PD ED PE NORMAL - Vitals Vital signs reviewed: Yes - General General: Alert and oriented X 3, Other (Appears uncomfortable especially wincing with motion) - Respiratory Respiratory: No respiratory distress, Clear bilaterally - Abdomen Abdomen: Normal bowel sounds, Soft, Non tender - Back Back: No CVA TTP, Other (Tender around L2/L3, the patient has equal and normal Achilles and patellar reflexes bilaterally. Normal sensation in all areas of the legs. Patient denies saddle anesthesia. Normal strength in flexion- extension at the ankles, knees, and flexion of the hips.) - Derm Derm: Normal color, Warm and dry - Neuro Neuro: Alert and oriented X 3, Normal speech Results - Vitals Vitals: Vital Signs - 24 hr 05/13/22 05/13/22 13:38 16:34 Temperature 36.3 C L 36.5 C Heart Rate 60 60 Respiratory 16 16 Rate Blood Pressure 135/39 H 136/60 H O2 Saturation 97 98 Oxygen O2 Source Nasal cannula Oxygen Flow Rate 2 - Labs Labs: Laboratory Tests 05/13/22 05/13/22 05/13/22 14:17 14:17 14:17 WBC 7.0 RBC 3.61 L Hgb 10.7 L Hct 35.9 L MCV 99.4 H MCH 29.6 MCHC 29.8 L RDW 13.3 Plt Count 231 MPV 9.5 Neut # (Auto) 4.5 Lymph # (Auto) 1.6 [place] # (Auto) 0.7 Eos # (Auto) 0.2 Baso # (Auto) 0.0 Absolute Nucleated RBC 0.00 Nucleated RBC % 0.0 ESR 31 H Sodium 138 Potassium 5.6 H Chloride 100 L Carbon Dioxide 32 Anion Gap 6.0 BUN 53 H Creatinine 1.1 Estimated GFR (MDRD) 63 L Glucose 124 H Calcium 9.0 C-Reactive Protein 2.6 H PD MEDICAL DECISION MAKING - ED course ED course: 87-year-old gentleman with increased over chronic back pain after a fall couple of days ago and is found to have an acute appearing T11 compression fracture. Pain improved but not gone after the administration of IV narcotics. Discussed need for follow-up and pain management. Departure - Departure Disposition: 01 Home, Self Care Clinical Impression: T11 vertebral fracture Condition: Good Record reviewed to determine appropriate education?: Yes Instructions: ED Fx Comp Vertebral Prescriptions: Calcitonin [Fortical] 1 sprays [place] DAILY #30 spr oxyCODONE [Roxicodone] 2 tab PO Q4-6H PRN #40 tablet PRN Reason: Pain Comments: You are seen today for an acute compression fracture T11. For this I am prescribing calcitonin and increasing your oxycodone. I sent these prescriptions to [facility] in [place]. In addition you can also use Tylenol per package instructions and for a few days you can use ibuprofen. Return if worsening. Follow-up with your primary care physician, next available appointment. I am prescribing a short course of narcotic pain medication for you. These are potentially dangerous and addictive medications that should be used carefully. These medications may constipate you. Take an oxes-win-bbterkh stool softener (docusate) twice daily with plenty of water while taking these medications. If you go 24 hours without a bowel movement, take [id number] miralax, per package instructions. Do not drink or drive while taking these medications. If you received narcotic or sedating medications while in the emergency department, do not drive for 24 hours. Store this medication in a safe, secure place and out of reach of children. It is a violation of federal law to give or sell this medication to another person or to use in a manner other than prescribed. The ED will not refill narcotic prescriptions, including prescriptions lost or stolen. To dispose of unwanted medications: 1. [facility] at [address] in [place] has a medication drop box. They accept prescription medications (in pill form) Friday through Friday 9:00 a.m. to 5:00 p.m. 2. The [facility] [employer] accepts prescription medications (in pill form only) for disposal year round. Call for more information. 3. Contact the [facility] for the next [facility] sponsored prescription drug collection event. , [phone], or [phone]; Note that many narcotic pain relievers also contain Tylenol/acetaminophen. Please ensure that your total dose of acetaminophen from all sources does not exceed 3 g (3000 mg) per day. Discharge Date/Time: 05/13/22 16:34
[2022-05-13 14:27] LABS: BASOPHILS % (AUTO) 0.3 %; EOSINOPHILS # (AUTO) 0.2 10^3/uL (0.0-0.7); EOSINOPHILS % (AUTO) 2.4 %; HCT - HEMATOCRIT 35.9 % (42.0-52.0); HGB - HEMOGLOBIN 10.7 g/dL (14.0-18.0); LYMPHOCYTES # (AUTO) 1.6 10^3/uL (1.5-3.5); LYMPHOCYTES % (AUTO) 23.1 %; MEAN CORPUSCULAR HEMOGLOBIN 29.6 pg (27.0-31.0); MEAN CORPUSCULAR HGB CONC 29.8 g/dL (32.0-36.0); MEAN CORPUSCULAR VOLUME 99.4 fL (80.0-94.0); MEAN PLATELET VOLUME 9.5 fL (7.4-11.4); MONOCYTES # (AUTO) 0.7 10^3/uL (0.0-1.0); MONOCYTES % (AUTO) 9.4 %; NEUTROPHILS # (AUTO) 4.5 10^3/uL (1.5-6.6); NEUTROPHILS % (AUTO) 64.5 %; PLT - PLATELET COUNT 231 10^3/uL (130-450); RED BLOOD COUNT 3.61 10^6/uL (4.70-6.10); RED CELL DISTRIBUTION WIDTH 13.3 % (12.0-15.0)
[2022-05-13 14:45] LABS: CREATININE 1.1 mg/dL (0.6-1.2); CRP - C-REACTIVE PROTEIN 2.6 mg/dL (0-1.0); POTASSIUM 5.6 mmol/L (3.5-5.0)
--- NOTE | 2022-05-13 16:08 | CT Report ---
PROCEDURE: LUMBAR SPINE WO INDICATIONS: back injury TECHNIQUE: Noncontrast 3 mm thick sections acquired from the T12 level to the sacrum. Sagittal and coronal refo rmats were constructed. For radiation dose reduction, the following was used: automated exposure co ntrol, adjustment of mA and/or kV according to patient size. COMPARISON: None. FINDINGS: Image quality: Excellent. Bones: There is prominent rightward scoliotic curvature. There is fusion from L4 through S1. Hardwar e is intact. The pedicular screws extend beyond the anterior vertebral cortex at the level of S1. The re is a compression deformity of approximately 87% at L1 appearing unchanged compared to prior exam. There is also loss of height at L3, also stable. There is an appearance of an acute/subacute fracture of the inferior anterior endplate corner extending to the midportion of the vertebral body at T11. T here is no retropulsion. Multilevel degenerative disc bulges, spinal stenosis and foraminal narrowing are present relatively u nchanged compared to prior exam. Soft tissues: No retroperitoneal masses or hematomas. Visualized aorta is normal in caliber. Large hiatal hernia is present. IMPRESSION: Acute/subacute fracture at the inferior anterior aspect of T11. Stable compression deformities at L1 and L3. Reviewed by: Cailin Dutta MD on 05/13/2022 4:07 PM PDT Approved by: Cailin Dutta MD on 05/13/2022 4:07 PM PDT Station ID: [id number]
[2022-05-13] MEDS ORDERED: KETOROLAC 15 MG/ML VIAL IVP STA (16:19)
[2022-05-13 16:37] VITALS: BP 136/60
== END 2022-05-13 16:34 | disposition home or self-care (01) ==
LOC: ED 13:21
DX: S22.089A Unspecified fracture of T11-T12 vertebra, initial encounter for closed fracture (principal); W19.XXXA Unspecified fall, initial encounter
CPT/HCPCS: 36415; 72131; 80048; 85025; 85651; 86140; 96374; 96375; 99282; 99284; J1170

== ENCOUNTER → 2022-05-14 | Outpatient (CLI) | payer MEDICARE, OTHER | END | disposition EMS.NT | LOC: EMS 04:23 | DX: M54.9 Dorsalgia, unspecified (principal); R41.0 Disorientation, unspecified ==

== ENCOUNTER 2022-06-07 10:59 | Outpatient (CLI) | payer MEDICARE, OTHER ==
[2022-06-07 14:47] LABS: CALCIUM 9.2 mg/dL (8.5-10.3); CREATININE 0.9 mg/dL (0.6-1.2); POTASSIUM 4.3 mmol/L (3.5-5.0)
== END 2022-06-07 11:00 | disposition home or self-care (01) ==
LOC: LAB.S 10:59
PROVIDERS: ATTEND Internal Medicine Cardiovascular Disease
DX: I50.813 Acute on chronic right heart failure (principal)
CPT/HCPCS: 36415; 80048

== ENCOUNTER 2022-07-21 17:47 | Outpatient (CLI) | payer MEDICARE, OTHER | END 2022-07-21 17:48 | disposition EMS.NT | LOC: EMS 17:47 | DX: R09.02 Hypoxemia (principal) ==

== ENCOUNTER 2022-07-24 21:02 | Outpatient (CLI) | payer MEDICARE, OTHER | END 2022-07-24 21:03 | disposition critical access hospital (66) | LOC: EMS 21:02 | DX: R53.1 Weakness (principal); R41.0 Disorientation, unspecified; R53.83 Other fatigue; W01.0XXA Fall on same level from slipping, tripping and stumbling without subsequent striking against object, initial encounter; Y92.009 Unspecified place in unspecified non-institutional (private) residence as the place of occurrence of the external cause | CPT/HCPCS: A0425; A0429 ==

== ENCOUNTER 2022-07-24 21:28 | Emergency (ER) | payer MEDICARE, OTHER ==
--- NOTE | 2022-07-24 21:33 | ED Physician Documentation ---
History of Present Illness - Stated complaint Stated Complaint: WEAK, LETHARGIC, FELL - History obtained from History obtained from: Patient, Family - History of Present Illness Timing: How many weeks ago (one week) Pain level now: 4 (low back pain) - Additonal information Additional information: ROCIO, called 911. patient has had generalized weakness x 1 week, increasing falls with most recent fall 3 days ago. Per EMS, family says patient seems confused and has been incontinent, with both of these "not normal" for patient. EMS was on scene earlier, patient initially refused, but agrees to transport at this time to ED. Patient has no c/o on my HPI, says he feels "fine" (per patient) and expresses that he does not want to be here. Review of Systems Constitutional: denies: Fever, Chills, Sweats Cardiac: denies: Chest pain / pressure Respiratory: denies: Dyspnea, Cough GI: denies: Abdominal Pain, Nausea, Vomiting, Constipation, Diarrhea : reports: Incontinent. denies: Dysuria, Frequency Neurologic: reports: Generalized weakness, Confused. denies: Focal weakness, Numbness, Headache, Head injury, LOC PD PAST MEDICAL HISTORY - Past Medical History Cardiovascular: Hypertension Respiratory: Asthma, Other Endocrine/Autoimmune: Type 2 diabetes, Other GI: None : None HEENT: Glaucoma, Other Psych: Anxiety Musculoskeletal: Osteoarthritis, Chronic back pain Derm: Other - Past Surgical History General: Colonoscopy Ortho: Spine surgery Derm: Skin cancer surgery - Present Medications Home Medications: Ambulatory Orders Medication Instructions Recorded Confirmed Albuterol Sulf [Ventolin Hfa 2 puffs INH Q4HR PRN 12/11/16 05/13/22 Inhaler] Gabapentin [Neurontin] 900 mg PO BID 12/11/16 05/13/22 Lisinopril 20 mg PO DAILY 12/11/16 05/13/22 amLODIPine [Norvasc] 10 mg PO DAILY 12/11/16 05/13/22 buPROPion [Wellbutrin Xl] 300 mg PO DAILY 12/11/16 05/13/22 oxyCODONE [Roxicodone] 10 mg PO QID 12/11/16 05/13/22 Latanoprost 0.005% Ophth Drops 1 drops OPTH BID 12/12/16 05/13/22 [Xalatan Ophth Drops] Melatonin 1 mg PO QPM 12/12/16 05/13/22 Budesonide/Formoterol Fumarate 1 puffs PO DAILY 06/20/17 05/13/22 [Symbicort 80-4.5 Mcg Inhaler] metFORMIN [Glucophage] 500 mg PO DAILY 06/20/17 05/13/22 Calcitonin [Fortical] 1 sprays [place] DAILY #30 spr 05/13/22 oxyCODONE [Roxicodone] 2 tab PO Q4-6H PRN #40 tablet 05/13/22 Lidocaine Patch 5% [Lidoderm Patch] 1 patch TOP DAILY PRN #10 patch 06/29/22 - Allergies Allergies/Adverse Reactions: Allergies Allergy/AdvReac Type Severity Reaction Status Date / Time No Known Drug Allergies Allergy Verified 07/24/22 21:37 - Social History Does the pt smoke?: No Smoking Status: Never smoker - Immunizations Immunizations are current?: Yes PD ED PE NORMAL - Vitals Vital signs reviewed: Yes - General General: No acute distress, Well developed/nourished, Other (awake, alert, oriented x 2 (does not know year)) - HEENT HEENT: Atraumatic, PERRL, EOMI - Neck Neck: Supple, no meningeal sign, No bony TTP - Cardiac Cardiac: RRR - Respiratory Respiratory: No respiratory distress, Clear bilaterally - Abdomen Abdomen: Soft, Non tender - Derm Derm: Normal color, Warm and dry - Extremities Extremities: No deformity, No tenderness to palpate, Normal ROM s pain, No edema - Neuro Neuro: rack puncher 2-12 intact, No motor deficit, No sensory deficit, Normal speech Eye Opening: Spontaneous Motor: Obeys Commands Verbal: Confused GCS Score: 14 Results - Vitals Vitals: Oxygen O2 Source Nasal cannula - Labs Labs: Laboratory Tests 07/24/22 07/24/22 07/24/22 22:01 22:01 22:01 WBC 7.8 RBC 3.88 L Hgb 11.0 L Hct 38.4 L MCV 99.0 H MCH 28.4 MCHC 28.6 L RDW 13.6 Plt Count 196 MPV 9.8 Neut # (Auto) 5.7 Lymph # (Auto) 1.2 L [place] # (Auto) 0.8 Eos # (Auto) 0.0 Baso # (Auto) 0.0 Absolute Nucleated RBC 0.00 Nucleated RBC % 0.0 Manual Slide Review Indicated WBC Morphology NORMAL APPEARANCE Platelet Estimate NORMAL (130-450,000) Platelet Morphology NORMAL APPEARANCE RBC Morph Micro Appear 1+ BASO STIPPLING Sodium 136 Potassium 4.8 Chloride 94 L Carbon Dioxide 34 H Anion Gap 8.0 BUN 36 H Creatinine 0.7 Estimated GFR (MDRD) 107 Glucose 138 H Lactic Acid Calcium 8.6 Total Bilirubin 0.4 AST 22 ALT 26 Alkaline Phosphatase 88 Total Protein 6.2 L Albumin 3.3 Globulin 2.9 Albumin/Globulin Ratio 1.1 Lipase 30 TSH 1.99 Urine Color Urine Clarity Urine pH Ur Specific [place] Urine Protein Urine Glucose (UA) Urine Ketones Urine Occult Blood Urine Nitrite Urine Bilirubin Urine Urobilinogen Ur Leukocyte Esterase Ur Microscopic Review Urine Culture Comments Ethyl Alcohol < 5.0 07/24/22 07/24/22 22:09 22:44 WBC RBC Hgb Hct MCV MCH MCHC RDW Plt Count MPV Neut # (Auto) Lymph # (Auto) [place] # (Auto) Eos # (Auto) Baso # (Auto) Absolute Nucleated RBC Nucleated RBC % Manual Slide Review WBC Morphology Platelet Estimate Platelet Morphology RBC Morph Micro Appear Sodium Potassium Chloride Carbon Dioxide Anion Gap BUN Creatinine Estimated GFR (MDRD) Glucose Lactic Acid 1.2 Calcium Total Bilirubin AST ALT Alkaline Phosphatase Total Protein Albumin Globulin Albumin/Globulin Ratio Lipase TSH Urine Color YELLOW Urine Clarity CLEAR Urine pH 6.0 Ur Specific [place] 1.025 Urine Protein TRACE Urine Glucose (UA) NEGATIVE Urine Ketones NEGATIVE Urine Occult Blood NEGATIVE Urine Nitrite NEGATIVE Urine Bilirubin NEGATIVE Urine Urobilinogen 0.2 (NORMAL) Ur Leukocyte Esterase NEGATIVE Ur Microscopic Review NOT INDICATED Urine Culture Comments NOT INDICATED Ethyl Alcohol - Rads (name of study) CT head Radiology: Prelim report reviewed, See rad report chest xray Radiology: Prelim report reviewed, See rad report PD MEDICAL DECISION MAKING - ED course Complexity details: reviewed old records, reviewed results, re-evaluated patient, considered differential, d/w patient, d/w family ED course: No concerning findings on tonight's test results. CTH without acute findings. Chest xray with possible mild pulmonary edema. UA is negative, normal WBC, normal lactate, afebrile, and TSH is normal. He is awake and alert, moves all extremities equally and able to slowly sit up in bed and to edge of bed. Family requests 10mg oxycodone during ED stay, as he receives this TID daily for recent back injury. I reviewed results with family and explained that at this time there is no indication for inpatient testing/treatment. Differential diagnosis would include effect of the oxycodone. Daughter says they have recently been decreasing the dosage and she also describes patient has khadijah uts of frustration and agitation, which might be due to some degree of withdrawal of decreasing doses (and/or increasing back pain from the lower doses). Dementia also must be considered possible cause or contributor to some of the symptoms described. Departure - Departure Disposition: 01 Home, Self Care Clinical Impression: Weakness Condition: Stable Instructions: ED Weakness UKO, ED Fall Dizziness Weakn Balance Comments: As we discussed, there are no concerning findings on tonight's tests. There is no evidence of a urinary tract infection. The chest xray and CT scan of the head do not have specific, diagnostic findings (no findings that are concerning nor that would explain weakness, falls; the CT head does show changes that are typical of aging). Please follow up with your primary care provider, next available appointment Discharge Date/Time: 07/25/22 01:39
[2022-07-24 22:07] LABS: BASOPHILS % (AUTO) 0.4 %; EOSINOPHILS % (AUTO) 0.4 %; HCT - HEMATOCRIT 38.4 % (42.0-52.0); LYMPHOCYTES # (AUTO) 1.2 10^3/uL (1.5-3.5); LYMPHOCYTES % (AUTO) 15.6 %; MEAN CORPUSCULAR HEMOGLOBIN 28.4 pg (27.0-31.0); MEAN CORPUSCULAR HGB CONC 28.6 g/dL (32.0-36.0); MEAN PLATELET VOLUME 9.8 fL (7.4-11.4); MONOCYTES # (AUTO) 0.8 10^3/uL (0.0-1.0); MONOCYTES % (AUTO) 10.2 %; NEUTROPHILS # (AUTO) 5.7 10^3/uL (1.5-6.6); NEUTROPHILS % (AUTO) 73.1 %; PLT - PLATELET COUNT 196 10^3/uL (130-450); RED BLOOD COUNT 3.88 10^6/uL (4.70-6.10); RED CELL DISTRIBUTION WIDTH 13.6 % (12.0-15.0); WHITE BLOOD COUNT 7.8 x10^3/uL (4.8-10.8)
[2022-07-24 22:22] LABS: ALBUMIN 3.3 g/dL (3.2-5.5); ALBUMIN/GLOBULIN RATIO 1.1 (1.0-2.2); ALKALINE PHOSPHATASE 88 IU/L (42-121); ALT ALANINE AMINOTRANSFERASE 26 IU/L (10-60); AST ASPARTATE AMINOTRANSFERASE 22 IU/L (10-42); BILIRUBIN,TOTAL 0.4 mg/dL (0.2-1.0); CALCIUM 8.6 mg/dL (8.5-10.3); CARBON DIOXIDE - CO2 34 mmol/L (21-32); CHLORIDE 94 mmol/L (101-111); CREATININE 0.7 mg/dL (0.6-1.2); ETOH - ETHANOL < 5.0 mg/dL; GFR - MDRD 107 (>89); GLUCOSE 138 mg/dL (70-100); LIPASE 30 U/L (22-51); POTASSIUM 4.8 mmol/L (3.5-5.0); SODIUM 136 mmol/L (135-145); TOTAL PROTEIN 6.2 g/dL (6.7-8.2)
[2022-07-24] MEDS ORDERED: oxyCODONE 5 MG TABLET PO STA (22:27)
[2022-07-24 22:30] LABS: BUN - BLOOD UREA NITROGEN 36 mg/dL (6-20)
[2022-07-24 22:33] LABS: SLIDE REVIEW? Indicated
[2022-07-24 22:35] LABS: PLATELET ESTIMATE, MANUAL NORMAL (130-450,000) (NORMAL); PLATELET MORPHOLOGY NORMAL APPEARANCE (NORMAL); WBC MORPHOLOGY (MULTIPLE) NORMAL APPEARANCE (NORMAL)
[2022-07-24 22:42] LABS: BILIRUBIN,URINE NEGATIVE (NEGATIVE); GLUCOSE, URINE (UA) NEGATIVE (NEGATIVE); KETONES,URINE (UA) NEGATIVE (NEGATIVE); LEUKOCYTE ESTERASE, URINE NEGATIVE (NEGATIVE); NITRITE,URINE NEGATIVE (NEGATIVE); OCCULT BLOOD,URINE NEGATIVE (NEGATIVE); PROTEIN,URINE TRACE mg/dL (NEGATIVE); UROBILINOGEN,URINE 0.2 (NORMAL) E.U./dL (NORMAL)
[2022-07-24 22:43] LABS: CLARITY,URINE CLEAR (CLEAR)
--- NOTE | 2022-07-25 00:23 | CT Report ---
PROCEDURE: HEAD WO INDICATIONS: fall, AMS TECHNIQUE: Noncontrast 4.5 mm thick angled axial sections acquired from the foramen magnum to the vertex. For r adiation dose reduction, the following was used: automated exposure control, adjustment of mA and/or kV according to patient size. COMPARISON: CT head 06/14/2021. FINDINGS: Image quality: There is motion artifact limiting evaluation. CSF spaces: There is mild cerebral volume loss with prominence of the ventricles and sulci. Basal ci sterns are patent. No extra-axial fluid collections. Brain: No definite intracranial hemorrhage, mass, or mass effect. [place]-white matter interface is pre served. There are subcortical and periventricular white matter hypodensities consistent with mild chr onic small vessel ischemic changes. Skull and face: Calvarium and visualized facial bones are intact, without suspicious lesions. Sinuses: Visualized sinuses demonstrate mucosal thickening within the bilateral maxillary and ethmoi d sinuses. Mastoid air cells are clear. IMPRESSION: 1. No definite acute intracranial abnormality. 2. Mild cerebral volume loss and chronic white matter small vessel ischemic changes. Reviewed by: Marty Matthews MD on 07/25/2022 12:21 AM PDT Approved by: Marty Matthews MD on 07/25/2022 12:21 AM PDT Station ID: [id number]
--- NOTE | 2022-07-25 00:34 | XRAY Report ---
PROCEDURE: Chest 2 View X-Ray INDICATIONS: fall, AMS TECHNIQUE: 2 views of the chest. COMPARISON: 06/29/2022. FINDINGS: Surgical changes and devices: None. Lungs and pleura: There are low lung volumes. Medial right lung apex is partially obscured by patient 's neck soft tissues. There is pulmonary vascular prominence consistent with pulmonary edema. Bibasil ar opacities are demonstrated consistent with atelectasis or consolidation. There are small bilateral pleural effusions. No definite pneumothorax. Mediastinum: Mediastinal contours are unchanged. Heart size is at the upper limits of normal. Bones and chest wall: No suspicious bony abnormalities. Soft tissues appear unremarkable. IMPRESSION: 1. Pulmonary edema, small bilateral pleural effusions, and bibasilar atelectasis or consolidation. 2. Small bilateral pleural effusions. Reviewed by: Marty Matthews MD on 07/25/2022 12:33 AM PDT Approved by: Marty Matthews MD on 07/25/2022 12:33 AM PDT Station ID: [id number]
[2022-07-25 01:34] VITALS: BP 129/63
== END 2022-07-25 01:39 | disposition home or self-care (01) ==
LOC: EDUNIT# → ED 21:28
DX: R53.1 Weakness (principal); I10 Essential (primary) hypertension; E11.9 Type 2 diabetes mellitus without complications; Z79.84 Long term (current) use of oral hypoglycemic drugs
CPT/HCPCS: 36415; 70450; 71046; 80053; 81003; 83605; 83690; 84443; 85025; 99282; 99284; A9270; G0480; 80320; 81001; 87086

== ENCOUNTER 2022-07-26 11:32 | Outpatient (CLI) | payer MEDICARE, OTHER | END 2022-07-26 11:33 | disposition short-term general hospital (02) | LOC: EMS 11:32 | DX: R46.4 Slowness and poor responsiveness (principal); R06.82 Tachypnea, not elsewhere classified; R06.2 Wheezing | CPT/HCPCS: A0425; A0427 ==

== ENCOUNTER 2022-09-10 11:22 | Outpatient (CLI) | payer MEDICARE, OTHER | END 2022-09-10 23:59 | disposition critical access hospital (66) | LOC: EMS 11:22 | DX: T40.2X1A Poisoning by other opioids, accidental (unintentional), initial encounter (principal); R53.83 Other fatigue; R45.1 Restlessness and agitation; Z99.81 Dependence on supplemental oxygen | CPT/HCPCS: A0425; A0429 ==

== ENCOUNTER 2022-09-10 11:49 | Emergency (ER) | payer MEDICARE, OTHER ==
--- NOTE | 2022-09-10 12:16 | ED Physician Documentation ---
PD HPI ALTERED MENTAL STATUS - Stated complaint Stated Complaint: OD - Chief complaint Chief Complaint: Neuro - History obtained from History obtained from: Patient, Family, EMS - History of Present Illness Timing - onset: How many hours ago (1), Today Timing - duration: Hours (The report from medics his family noticed the patient to be very somnolent shortly after taking his morning pain medicine. He does take oxycodone scheduled several times daily and has been for a while. He does do his own medications out of the bottles and not a pill pack. ? overtook meds.) Timing - details: Gradual onset, Now resolved (Family members gave Narcan to the patient at home and he awakened reasonably prompt but was very agitated and complained of pain all over. No vomiting.) Quality / character: Less responsive Associated symptoms: No: Fever, Headache, Dyspnea, Cough Contributing factors: COPD, Other (chronic pain back/diffusely.). No: Recent med change (Patient denies any recent change in medicines. However he could not say if he accidentally double dosed on his medications this morning.) Basline status: Alert and oriented X 3, Walker Treatment SILK SCREENER: Accucheck, Narcan Similar symptoms before: Diagnosis (has had similar with hydration issues or infections.) Recently seen: Admitted (He was admitted couple of months ago for altered mentation in [facility]. Patient seen in the ER July 25 for general weakness and fall without any specific findings and seemed okay with fluids.) Review of Systems Unable to obtain: Other (includes info from family ( and daughter)) Constitutional: denies: Fever Nose: denies: Rhinorrhea / runny nose, Congestion Throat: denies: Sore throat Respiratory: denies: Cough GI: reports: Other (Less appetite over the last few days per daughter. There has been family visiting over the weekend few days ago and the patient was more active and higher than usual). denies: Vomiting, Diarrhea, Bloody / black stool : reports: Incontinent Neurologic: reports: Generalized weakness. denies: Headache, Head injury PD PAST MEDICAL HISTORY - Past Medical History Cardiovascular: Hypertension Respiratory: Asthma, Other Endocrine/Autoimmune: Type 2 diabetes, Other GI: None : None HEENT: Glaucoma, Other Psych: Anxiety Musculoskeletal: Osteoarthritis, Chronic back pain Derm: Other - Past Surgical History General: Colonoscopy Ortho: Spine surgery Derm: Skin cancer surgery - Present Medications Home Medications: Ambulatory Orders Medication Instructions Recorded Confirmed Albuterol Sulf [Ventolin Hfa 2 puffs INH Q4HR PRN 12/11/16 09/10/22 Inhaler] Gabapentin [Neurontin] 900 mg PO BID 12/11/16 05/13/22 Lisinopril 20 mg PO DAILY 12/11/16 05/13/22 amLODIPine [Norvasc] 5 mg PO DAILY 12/11/16 09/10/22 buPROPion [Wellbutrin Xl] 300 mg PO DAILY 12/11/16 09/10/22 oxyCODONE [Roxicodone] 10 mg PO QID 12/11/16 09/10/22 Latanoprost 0.005% Ophth Drops 1 drops OPTH BID 12/12/16 09/10/22 [Xalatan Ophth Drops] Melatonin 1 mg PO QPM 12/12/16 05/13/22 Budesonide/Formoterol Fumarate 1 puffs PO DAILY 06/20/17 09/10/22 [Symbicort 80-4.5 Mcg Inhaler] metFORMIN [Glucophage] 500 mg PO DAILY 06/20/17 09/10/22 Calcitonin [Fortical] 1 sprays [place] DAILY #30 spr 05/13/22 oxyCODONE [Roxicodone] 2 tab PO Q4-6H PRN #40 tablet 05/13/22 09/10/22 Lidocaine Patch 5% [Lidoderm Patch] 1 patch TOP DAILY PRN #10 patch 06/29/22 Apixaban [Eliquis] 5 mg ORAL DAILY 09/10/22 09/10/22 Montelukast [Singulair] 10 mg PO QPM 09/10/22 09/10/22 - Allergies Allergies/Adverse Reactions: Allergies Allergy/AdvReac Type Severity Reaction Status Date / Time No Known Drug Allergies Allergy Verified 07/24/22 21:37 - Social History Does the pt smoke?: No Smoking Status: Never smoker - Immunizations Immunizations are current?: Yes PD ED PE NORMAL - Vitals Vital signs reviewed: Yes - General General: Well developed/nourished, Other (A bit fidgety and agitated and somewhat confused. Consider some narcotic withdrawal from the Narcan.) - HEENT HEENT: Atraumatic, Pharynx benign - Neck Neck: Supple, no meningeal sign, No adenopathy - Cardiac Cardiac: No murmur. No: RRR (irregular but controlled rate. ) - Respiratory Respiratory: No respiratory distress, Clear bilaterally - Abdomen Abdomen: Soft, Non tender, Non distended - Derm Derm: Normal color, Warm and dry - Extremities Extremities: Normal ROM s pain, No edema, No calf tenderness / cord - Neuro Neuro: No motor deficit, No sensory deficit. No: Alert and oriented X 3 (person and place) Eye Opening: Spontaneous Motor: Obeys Commands Verbal: Confused GCS Score: 14 Results - Vitals Vitals: Vital Signs - 24 hr 09/10/22 09/10/22 09/10/22 12:04 13:49 14:19 Temperature 37.0 C Heart Rate 92 104 H 105 H Respiratory 22 33 H 24 Rate Blood Pressure 110/84 H 112/75 96/83 H O2 Saturation 98 91 L 92 If not protocol 4 4 : Oxygen Flow, liters/minute 09/10/22 14:30 Temperature Heart Rate 93 Respiratory 28 H Rate Blood Pressure 114/86 H O2 Saturation 100 If not protocol 3 : Oxygen Flow, liters/minute Oxygen O2 Source Nasal cannula Oxygen Flow Rate 2 - Labs Labs: Laboratory Tests 09/10/22 09/10/22 09/10/22 13:30 13:30 14:00 WBC 9.8 RBC 3.49 L Hgb 9.6 L Hct 36.0 L MCV 103.2 H MCH 27.5 MCHC 26.7 L RDW 15.1 H Plt Count 218 MPV 10.9 Neut # (Auto) 7.4 H Lymph # (Auto) 1.4 L [place] # (Auto) 0.9 Eos # (Auto) 0.0 Baso # (Auto) 0.1 Absolute Nucleated RBC 0.05 Nucleated RBC % 0.5 Manual Slide Review Indicated WBC Morphology NORMAL APPEARANCE Platelet Estimate NORMAL (130-450,000) Platelet Morphology NORMAL APPEARANCE RBC Morph Micro Appear 1+ HYPOCHROMASIA Sodium 144 Potassium 5.5 H Chloride 90 L Carbon Dioxide 38 H Anion Gap 16.0 H BUN 55 H Creatinine 1.5 H Estimated GFR (MDRD) 44 L Glucose 151 H Calcium 9.1 Magnesium 2.5 Iron TIBC % Saturation Transferrin Total Bilirubin 0.6 AST 68 H ALT 63 H Alkaline Phosphatase 96 Total Protein 6.3 L Albumin 3.4 Globulin 2.9 Albumin/Globulin Ratio 1.2 Lipase 77 H Urine Color Urine Clarity Urine pH Ur Specific [place] Urine Protein Urine Glucose (UA) Urine Ketones Urine Occult Blood Urine Nitrite Urine Bilirubin Urine Urobilinogen Ur Leukocyte Esterase Ur Microscopic Review Urine Culture Comments Nasal Adenovirus (PCR) NOT DETECTED Nasal B. parapertussis DNA (PCR) NOT DETECTED Nasal Coronavir 229E PCR NOT DETECTED Nasal Coronavir HKU1 PCR NOT DETECTED Nasal Coronavir NL63 PCR NOT DETECTED Nasal Coronavir OC43 PCR NOT DETECTED Nasal Enterovir/Rhinovir PCR NOT DETECTED Nasal Influenza B PCR NOT DETECTED Nasal Influenza A PCR NOT DETECTED Nasal Parainfluen 1 PCR NOT DETECTED Nasal Parainfluen 2 PCR NOT DETECTED Nasal Parainfluen 3 PCR NOT DETECTED Nasal Parainfluen 4 PCR NOT DETECTED Nasal RSV (PCR) NOT DETECTED Nasal B.pertussis DNA PCR NOT DETECTED Nasal C.pneumoniae (PCR) NOT DETECTED [place] Human Metapneumo PCR NOT DETECTED Nasal M.pneumoniae (PCR) NOT DETECTED Nasal SARS-CoV-2 (PCR) NOT DETECTED Salicylates < 6.0 Urine Opiates Screen Ur Oxycodone Screen Urine Methadone Screen Ur Propoxyphene Screen Acetaminophen 14 Ur Barbiturates Screen Ur Tricyclics Screen Ur Phencyclidine Scrn Ur Amphetamine Screen U Methamphetamines Scrn U Benzodiazepines Scrn Urine Cocaine Screen U Cannabinoids Screen Ethyl Alcohol < 5.0 09/10/22 09/10/22 14:09 15:03 WBC RBC Hgb Hct MCV MCH MCHC RDW Plt Count MPV Neut # (Auto) Lymph # (Auto) [place] # (Auto) Eos # (Auto) Baso # (Auto) Absolute Nucleated RBC Nucleated RBC % Manual Slide Review WBC Morphology Platelet Estimate Platelet Morphology RBC Morph Micro Appear Sodium Potassium Chloride Carbon Dioxide Anion Gap BUN Creatinine Estimated GFR (MDRD) Glucose Calcium Magnesium Iron 263 H TIBC 441 % Saturation 60 H Transferrin 315 Total Bilirubin AST ALT Alkaline Phosphatase Total Protein Albumin Globulin Albumin/Globulin Ratio Lipase Urine Color YELLOW Urine Clarity CLEAR Urine pH 6.0 Ur Specific [place] 1.025 Urine Protein TRACE Urine Glucose (UA) NEGATIVE Urine Ketones NEGATIVE Urine Occult Blood NEGATIVE Urine Nitrite NEGATIVE Urine Bilirubin NEGATIVE Urine Urobilinogen 0.2 (NORMAL) Ur Leukocyte Esterase NEGATIVE Ur Microscopic Review NOT INDICATED Urine Culture Comments NOT INDICATED Nasal Adenovirus (PCR) Nasal B. parapertussis DNA (PCR) Nasal Coronavir 229E PCR Nasal Coronavir HKU1 PCR Nasal Coronavir NL63 PCR Nasal Coronavir OC43 PCR Nasal Enterovir/Rhinovir PCR Nasal Influenza B PCR Nasal Influenza A PCR Nasal Parainfluen 1 PCR Nasal Parainfluen 2 PCR Nasal Parainfluen 3 PCR Nasal Parainfluen 4 PCR Nasal RSV (PCR) Nasal B.pertussis DNA PCR Nasal C.pneumoniae (PCR) [place] Human Metapneumo PCR Nasal M.pneumoniae (PCR) Nasal SARS-CoV-2 (PCR) Salicylates Urine Opiates Screen NEGATIVE Ur Oxycodone Screen POSITIVE H Urine Methadone Screen NEGATIVE Ur Propoxyphene Screen NEGATIVE Acetaminophen Ur Barbiturates Screen NEGATIVE Ur Tricyclics Screen NEGATIVE Ur Phencyclidine Scrn NEGATIVE Ur Amphetamine Screen NEGATIVE U Methamphetamines Scrn NEGATIVE U Benzodiazepines Scrn NEGATIVE Urine Cocaine Screen NEGATIVE U Cannabinoids Screen NEGATIVE Ethyl Alcohol PD MEDICAL DECISION MAKING - ED course Complexity details: reviewed results (Labs are showing increased creatinine of 1.5 compared to 1.0 recent. Potassium slightly elevated at 5.5. This most likely represents under hydration given less oral intake the last several days. Urinalysis and blood tests otherwise are okay. With the exception of anemia more than baseline. ), considered differential, d/w patient Departure - Departure Disposition: 01 Home, Self Care Clinical Impression: Dehydration, Altered mental status, Anemia Condition: Stable Record reviewed to determine appropriate education?: Yes Comments: Your blood test would suggest dehydration/under hydration with elevation of your creatinine and potassium. Encourage frequent fluids. Continue usual medications. Was It does sound like you had a main symptoms from the extra dose of your pain medicine this morning. However there likely was some underlying affect also from under hydration. At this point no signs of serious problems. The viral panel PCR test is still pending at this point though. You are anemic with your blood count being a bit lower than usual. This may indicate some iron deficiency or so. Watch for any signs of dark stool or blood in your stool. The testing for iron levels/etc is pending, and your primary care can follow up on them. I would anticipate improving to your baseline through the day today when you are back at home and you are familiar surroundings and with regular medications. Follow-up or return to the ER if persistent symptoms of any confusion or poor eating or other issues. Discharge Date/Time: 09/10/22 15:25
[2022-09-10] MEDS ORDERED: LORazepam 2 MG/ML VIAL IVP STA (12:25)
[2022-09-10] MEDS ORDERED: SODIUM CHLORIDE 0.9% 1,000 ML IV STA (12:27)
[2022-09-10 13:35] LABS: BASOPHILS # (AUTO) 0.1 10^3/uL (0.0-0.1); BASOPHILS % (AUTO) 0.5 %; EOSINOPHILS % (AUTO) 0.1 %; HGB - HEMOGLOBIN 9.6 g/dL (14.0-18.0); LYMPHOCYTES # (AUTO) 1.4 10^3/uL (1.5-3.5); LYMPHOCYTES % (AUTO) 13.8 %; MEAN CORPUSCULAR HEMOGLOBIN 27.5 pg (27.0-31.0); MEAN CORPUSCULAR HGB CONC 26.7 g/dL (32.0-36.0); MEAN CORPUSCULAR VOLUME 103.2 fL (80.0-94.0); MEAN PLATELET VOLUME 10.9 fL (7.4-11.4); MONOCYTES # (AUTO) 0.9 10^3/uL (0.0-1.0); MONOCYTES % (AUTO) 9.4 %; NEUTROPHILS # (AUTO) 7.4 10^3/uL (1.5-6.6); NEUTROPHILS % (AUTO) 75.8 %; NRBC ABSOLUTE COUNT (AUTO) 0.05 x10^3/uL; NUCLEATED RED BLOOD CELLS AUTO 0.5 /100WBC; PLT - PLATELET COUNT 218 10^3/uL (130-450); RED BLOOD COUNT 3.49 10^6/uL (4.70-6.10); RED CELL DISTRIBUTION WIDTH 15.1 % (12.0-15.0); WHITE BLOOD COUNT 9.8 x10^3/uL (4.8-10.8)
[2022-09-10 13:55] LABS: ACETAMINOPHEN 14 ug/mL (10-30); ALBUMIN 3.4 g/dL (3.2-5.5); ALBUMIN/GLOBULIN RATIO 1.2 (1.0-2.2); ALKALINE PHOSPHATASE 96 IU/L (42-121); ALT ALANINE AMINOTRANSFERASE 63 IU/L (10-60); AST ASPARTATE AMINOTRANSFERASE 68 IU/L (10-42); BILIRUBIN,TOTAL 0.6 mg/dL (0.2-1.0); BUN - BLOOD UREA NITROGEN 55 mg/dL (6-20); CALCIUM 9.1 mg/dL (8.5-10.3); CARBON DIOXIDE - CO2 38 mmol/L (21-32); CHLORIDE 90 mmol/L (101-111); CREATININE 1.5 mg/dL (0.6-1.2); ETOH - ETHANOL < 5.0 mg/dL; GFR - MDRD 44 (>89); GLUCOSE 151 mg/dL (70-100); LIPASE 77 U/L (22-51); MAGNESIUM 2.5 mg/dL (1.7-2.8); POTASSIUM 5.5 mmol/L (3.5-5.0); SALICYLATE < 6.0 mg/dL; SODIUM 144 mmol/L (135-145); TOTAL PROTEIN 6.3 g/dL (6.7-8.2)
[2022-09-10 14:03] LABS: PLATELET ESTIMATE, MANUAL NORMAL (130-450,000) (NORMAL); PLATELET MORPHOLOGY NORMAL APPEARANCE (NORMAL); SLIDE REVIEW? Indicated
[2022-09-10 14:04] LABS: WBC MORPHOLOGY (MULTIPLE) NORMAL APPEARANCE (NORMAL)
[2022-09-10 14:12] LABS: MUDS CUTOFF CONCENTRATIONS CUTOFF CONC BELOW:
[2022-09-10 14:16] LABS: BILIRUBIN,URINE NEGATIVE (NEGATIVE); GLUCOSE, URINE (UA) NEGATIVE (NEGATIVE); KETONES,URINE (UA) NEGATIVE (NEGATIVE); LEUKOCYTE ESTERASE, URINE NEGATIVE (NEGATIVE); NITRITE,URINE NEGATIVE (NEGATIVE); OCCULT BLOOD,URINE NEGATIVE (NEGATIVE); PROTEIN,URINE TRACE mg/dL (NEGATIVE); UROBILINOGEN,URINE 0.2 (NORMAL) E.U./dL (NORMAL)
[2022-09-10 14:18] LABS: CLARITY,URINE CLEAR (CLEAR)
[2022-09-10 14:27] LABS: AMPHETAMINE SCREEN,URINE NEGATIVE (NEGATIVE); BARBITURATE SCREEN,UR NEGATIVE (NEGATIVE); BENZODIAZEPINES SCREEN, URINE NEGATIVE (NEGATIVE); COCAINE SCREEN URINE NEGATIVE (NEGATIVE); METHADONE SCREEN, URINE NEGATIVE (NEGATIVE); METHAMPHETAMINES SCREEN, URINE NEGATIVE (NEGATIVE); OPIATE SCREEN, URINE NEGATIVE (NEGATIVE); OXYCODONE SCREEN, URINE POSITIVE (NEGATIVE); PROPOXYPHENE SCREEN, URINE NEGATIVE (NEGATIVE); THC CANNABINOID SCREEN, URINE NEGATIVE (NEGATIVE); TRICYCLIC ANTIDEPRESSANT,URINE NEGATIVE (NEGATIVE)
[2022-09-10 14:35] VITALS: BP 114/86
[2022-09-10] MEDS ORDERED: NALOXONE HCL NASAL SPRAY KIT NAS STA (15:04)
[2022-09-10 15:29] LABS: % IRON SATURATION 60 % (20-50); IRON 263 ug/dL (45-182); TOTAL IRON BINDING CAPACITY 441 ug/dL (250-450); TRANSFERRIN 315 mg/dL (180-329)
[2022-09-10 15:38] LABS: B. PARAPERTUSSIS- RESP PCR PAN NOT DETECTED; B. PERTUSSIS- RESP PCR PANEL NOT DETECTED; C. PNEUMONIAE- RESP PCR PANEL NOT DETECTED; CORONAVIRUS 229E-RESP PCR NOT DETECTED; CORONAVIRUS HKU1-RESP PCR NOT DETECTED; CORONAVIRUS NL63-RESP PCR NOT DETECTED; CORONAVIRUS OC43-RESP PCR NOT DETECTED; HUMAN METAPNEUMOVIRUS NOT DETECTED; INFLUENZA A- RESP PCR PANEL NOT DETECTED; INFLUENZA B - RESP PCR PANEL NOT DETECTED; M. PNEUMONIAE- RESP PCR PANEL NOT DETECTED; PARAINFLUENZA VIRUS 1 NOT DETECTED; PARAINFLUENZA VIRUS 2 NOT DETECTED; PARAINFLUENZA VIRUS 3 NOT DETECTED; PARAINFLUENZA VIRUS 4 NOT DETECTED; RHINOVIRUS/ENTEROVIRUS NOT DETECTED; RSV- RESP PCR PANEL NOT DETECTED; SARS-CoV-2 -RESP PCR PANEL NOT DETECTED
== END 2022-09-10 15:25 | disposition home or self-care (01) ==
LOC: EDUNIT# → ED 11:49
DX: E86.0 Dehydration (principal); R41.82 Altered mental status, unspecified; D64.9 Anemia, unspecified; R53.1 Weakness; M54.9 Dorsalgia, unspecified; G89.29 Other chronic pain; J44.9 Chronic obstructive pulmonary disease, unspecified; I10 Essential (primary) hypertension; E11.9 Type 2 diabetes mellitus without complications; Z79.84 Long term (current) use of oral hypoglycemic drugs; Z79.899 Other long term (current) drug therapy
CPT/HCPCS: 36415; 80053; 80306; 80307; 81003; 83540; 83690; 83735; 84466; 85025; 87633; 96361; 96374; 99284; G0480; G2215; J2060; 80320; 80329; 81001; 87086

== ENCOUNTER 2022-09-13 20:46 | Outpatient (CLI) | payer MEDICARE, OTHER | END 2022-09-13 20:47 | disposition EMS.NT | LOC: EMS 20:46 | DX: R53.1 Weakness (principal) ==

== ENCOUNTER 2022-09-19 03:11 | Outpatient (CLI) | payer MEDICARE, OTHER | END 2022-09-19 03:12 | disposition EMS.NT | LOC: EMS 03:11 | DX: Z03.89 Encounter for observation for other suspected diseases and conditions ruled out (principal) ==

== ENCOUNTER 2022-09-22 05:55 | Outpatient (CLI) | payer MEDICARE, OTHER | END 2022-09-22 23:59 | disposition EMS.NT | LOC: EMS 05:55 | DX: R53.1 Weakness (principal) ==

== ENCOUNTER 2022-09-22 13:07 | Outpatient (CLI) | payer MEDICARE, OTHER | END 2022-09-22 13:08 | disposition short-term general hospital (02) | LOC: EMS 13:07 | DX: R46.4 Slowness and poor responsiveness (principal); R09.02 Hypoxemia; I95.9 Hypotension, unspecified | CPT/HCPCS: A0425; A0433 ==